=== PATIENT | male | born 1980 | race African-American/Black ===

== ENCOUNTER 2018-12-29 08:32 | Emergency (ER) | payer SELFPAY ==
[2018-12-29] MEDS ORDERED: Acetaminophen/Codeine 30-300mg Tablet ONE (09:04)
[2018-12-29] MEDS ORDERED: Cyclobenzaprine 10 MG TAB ONE (09:04)
--- NOTE | 2018-12-29 09:32 | RAD ---
RADIOGRAPH CHEST AND RIGHT RIBS 4 VIEWS: DATE: 12/29/2018 HISTORY: 38-year-old male with persistent posttraumatic right chest and rib pain after fall 7 days ago FINDINGS: The visualized lung rojas are clear. The cardiomediastinal silhouette and hilar shadows are normal. The lateral costophrenic angles are sharp. The osseous structures appear normal. There is no pneumothorax. IMPRESSION: Negative.
== END 2018-12-29 09:41 | disposition home or self-care (01) ==
LOC: NAV ERS 08:32
DX: S23.41XA Sprain of ribs, initial encounter (principal); F17.210 Nicotine dependence, cigarettes, uncomplicated; W17.89XA Other fall from one level to another, initial encounter

== ENCOUNTER 2021-06-21 21:52 | Emergency (ER) | payer OTHER, BC ==
[2021-06-21] MEDS ORDERED: Ibuprofen 200 MG TAB ONE (22:09)
[2021-06-21] MEDS ORDERED: Boostrix 0.5 ML (Tdap) VIAL ONE (22:11)
[2021-06-21] MEDS ORDERED: Amoxicillin/Potassium Clav 875 MG TAB ONE (22:11)
[2021-06-21] MEDS ORDERED: Bacitracin 1 PK ONE (22:33)
== END 2021-06-21 22:42 | disposition home or self-care (01) ==
LOC: NAV ERS 21:52
DX: S61.451A Open bite of right hand, initial encounter (principal); F17.210 Nicotine dependence, cigarettes, uncomplicated; W54.0XXA Bitten by dog, initial encounter
CPT/HCPCS: 90471; 90715

== ENCOUNTER 2024-04-30 09:32 | Emergency (ER) | payer BC, SELFPAY | END 2024-04-30 10:41 | disposition home or self-care (01) | LOC: NAV ERS 09:32 | DX: S86.112A Strain of other muscle(s) and tendon(s) of posterior muscle group at lower leg level, left leg, initial encounter (principal); F17.210 Nicotine dependence, cigarettes, uncomplicated; I10 Essential (primary) hypertension; E78.00 Pure hypercholesterolemia, unspecified; Z79.899 Other long term (current) drug therapy; X50.1XXA Overexertion from prolonged static or awkward postures, initial encounter | CPT/HCPCS: 99283 ==